=== PATIENT | male | born 1975 | race Hispanic/Latino ===

== ENCOUNTER → 2017-05-16 | Emergency (ER) | payer OTHER ==
[~2017-05-16] MED LIST: POTASSIUM CHLO10 MEQ PO
== END ==
LOC: ED 21:16
DX: Z53.21 Procedure and treatment not carried out due to patient leaving prior to being seen by health care provider (principal)

== ENCOUNTER 2017-05-25 19:21 | Emergency (ER) | payer OTHER ==
[~2017-05-25] VITALS: Ht 170.2 cm; Wt 88.5 kg
[2017-05-25] MEDS ORDERED: POTASSIUM CHLO10 MEQ PO (21:24)
--- NOTE | 2017-05-26 21:45 | EKG ---
[facility] [address] [facility] [place] [address] Signed Sinus tachycardia Incomplete right bundle branch block Borderline ECG No previous ECGs available Confirmed by XANDER MCHUGH MD ([id number]) on 05/26/2017 9:44:57 PM Electronically Signed By: XANDER MCHUGH MD 05/26/17 [id number] PATIENT NAME: GEE CORDOVA Electrocardiogram DATE OF : 79 PHYSICIAN: XANDER MCHUGH MD REPORT #: [id number] REPORT IS CONFIDENTIAL AND NOT TO BE RELEASED WITHOUT AUTHORIZATION
== END 2017-05-25 22:07 | disposition home or self-care (01) ==
LOC: ED 19:21
DX: E87.6 Hypokalemia (principal); E86.0 Dehydration
CPT/HCPCS: 71010; 80053; 81001; 84484; 85025; 93005; 93010; 99284; J7030